=== PATIENT | female | born 1980 | race African-American/Black ===

== ENCOUNTER 2021-04-21 14:21 | Emergency (ER) | payer OTHER, SELFPAY ==
[2021-04-21] MEDS ORDERED: Dexamethasone 10 MG/ML VIAL ONE (15:31)
== END 2021-04-21 15:54 | disposition home or self-care (01) ==
LOC: CSHERS 14:21
DX: J45.901 Unspecified asthma with (acute) exacerbation (principal)
CPT/HCPCS: 96372; 99284; J1100